=== PATIENT | female | born 1975 | race Caucasian/White ===

== ENCOUNTER 2023-10-11 14:16 | Outpatient (CLI) | payer BC ==
--- NOTE | 2023-10-11 22:01 | XRAY Report ---
PROCEDURE: Elbow 2 View LT INDICATIONS: LATERAL EPICONDY;ITIS TECHNIQUE: 2 views of the elbow were acquired. COMPARISON: None FINDINGS: Bones: No fractures or dislocations. No suspicious bony lesions. Soft tissues: No elbow joint effusion. No suspicious soft tissue calcifications. IMPRESSION: Unremarkable elbow radiographs Reviewed by: Sg Morocho MD on 10/11/2023 9:00 PM [facility] Approved by: Sg Morocho MD on 10/11/2023 9:00 PM [facility] Station ID: [id number]
== END 2023-10-11 14:17 | disposition home or self-care (01) ==
LOC: DI 14:16
PROVIDERS: ATTEND Physician Assistant
DX: M77.12 Lateral epicondylitis, left elbow (principal)

== ENCOUNTER 2024-01-11 09:31 | Outpatient (CLI) | payer BC ==
--- NOTE | 2024-01-11 13:58 | XRAY Report ---
PROCEDURE: Foot 1-2V RT INDICATIONS: LEFT FOOT CONTUSION TECHNIQUE: 2 views of the foot were acquired. COMPARISON: None. FINDINGS: Bones: No acute fractures or dislocations. No suspicious bony lesions. Small plantar calcaneal ent hesophyte. Soft tissues: No suspicious soft tissue calcification. IMPRESSION: 1.No acute osseous abnormality. If there is clinical concern or persistent symptoms, additional imagi ng such as repeat radiographs or advanced imaging (e.g. CT, MRI) may be helpful for further evaluatio n. 2.Small plantar calcaneal enthesophyte. Reviewed by: Samuel Marrufo MD on 01/11/2024 1:57 PM PDT Approved by: Samuel Marrufo MD on 01/11/2024 1:57 PM PDT Station ID: [id number]
== END 2024-01-11 09:32 | disposition home or self-care (01) ==
LOC: DI 09:31
PROVIDERS: ATTEND Nurse Practitioner
DX: S90.31XA Contusion of right foot, initial encounter (principal); M77.31 Calcaneal spur, right foot

== ENCOUNTER 2024-06-20 10:17 | Outpatient (CLI) | payer BC ==
[2024-06-20 12:22] LABS: ESTIMATED AVERAGE GLUCOSE 100 mg/dL (70-100); HEMOGLOBIN A1c% 5.1 % (4.27-6.07)
== END 2024-06-20 10:18 | disposition home or self-care (01) ==
LOC: LAB 10:17
PROVIDERS: ATTEND Obstetrics & Gynecology
DX: E03.9 Hypothyroidism, unspecified (principal); N95.9 Unspecified menopausal and perimenopausal disorder
CPT/HCPCS: 36415; 83036; 84443